=== PATIENT | female | born 1965 | race Asian ===

== ENCOUNTER 2017-10-15 14:02 | Emergency (ER) | payer BC ==
[2017-10-15 14:19] LABS: Bilirubin Negative (Negative); Blood, Urine Small (Negative); Clarity Slightly Cloudy (Clear); Glucose, Urine (Dipstick) Negative (Negative); Leukocyte Trace (Negative); Nitrite Negative (Negative); Protein, Urine (Dipstick) Negative (Neg-Trace); Specific Gravity, Urine 1.015 (1.005-1.030); Urobilinogen 0.2 mg/dL (0.2-1.0)
[2017-10-15 14:23] LABS: Bacteria/HPF 1+ HPF (None Seen); Crystals/HPF 1+ AMORPH PHOS HPF (Negative); Squamous Epithelial 0-3 HPF (0-3)
[2017-10-15 14:24] LABS: Hyaline Casts/LPF 0-3 HYALINE CAST LPF (0-3 Hyaline)
== END 2017-10-15 14:41 | disposition home or self-care (01) ==
LOC: SCSER 14:02
DX: N39.0 Urinary tract infection, site not specified (principal); E78.5 Hyperlipidemia, unspecified; I10 Essential (primary) hypertension; F41.9 Anxiety disorder, unspecified
CPT/HCPCS: 81003; 81015; 87086; 99283

== ENCOUNTER 2018-03-10 08:43 | Outpatient (CLI) | payer BC ==
--- NOTE | 2018-03-10 11:17 | MRI ---
MRI CERVICAL SPINE WITHOUT IV CONTRAST: Date: 03/10/18 HISTORY: Cervical disc degeneration. Patient complains of neck and back pain for years with bilateral hand num bness. FINDINGS: The limited visualized base of brain, as well as cervicomedullary junction demonstrate a normal MRI a ppearance. There are mild end plate degenerative changes at the C3-4, C4-5, and C5-6 levels. There is straightening of the normal lumbar curvature. C2-3 Level: There is no disc bulge or disc herniation. Central spinal canal and neural foramina are widely patent . C3-4 Level: There is mild loss of intervertebral disc height. There is a broad based disc osteophyte complex with very small central disc protrusion. This does result in mild generalized narrowing of the central sp inal canal and there is mild mass effect in the anterior aspect of the spinal cord, but normal signal intensity is present in the spinal cord. The neural foramina are patent. C4-5 Level: There is loss of intervertebral disc height. There is a broad based disc osteophyte complex, includin g small central disc protrusion. There is mild generalized narrowing of the central spinal canal with mild mass effect on the central and left anterolateral aspect of the spinal cord, but normal signal intensity is present in the spinal cord. The neural foramina are patent. C5-6 Level: There is loss of intervertebral disc height. There is a broad based disc osteophyte complex present. This narrows the ventral subarachnoid space. There is mild right and moderate to severe left-sided ne ural foraminal narrowing. C6-7 Level: There is no disc bulge or disc herniation. Central spinal canal and neural foramina are patent. Howev er, there is a 5.0 mm rounded increased T2-weighted signal intensity focus within the lateral aspect of the left C6-7 neural foramen likely related to a dilated nerve root sleeve. C7-T1 Level: There is no disc bulge or disc herniation. Central spinal canal and neural foramina are patent. Paravertebral soft tissues demonstrate a normal MRI appearance. IMPRESSION: Disc degenerative changes within the cervical spine, primarily involving the C3-4, C4-5, and C5-6 lev els. The greatest degree of neural foraminal narrowing is on the left at C5-6 level which approaches moderate to severe in severity. POS: [facility]
--- NOTE | 2018-03-10 11:34 | MRI ---
MRI LUMBAR SPINE: Date: 03-10-18 History: Lumbar radiculopathy. Patient is complaining of neck and back pain for many years. Patient h as back pain that radiates down left leg. Comparison: None available. FINDINGS: There are a few subcentimeter increased T2 weighted signal intensity foci seen in the right hepatic l obe, incompletely imaged, that are overall nonspecific but may represent tiny hepatic cysts. There is also a subcentimeter too small to characterize increased T2 weighted signal intensity lesion at the inferior pole right kidney which is also difficult to characterize but statistically probably represe nts a cyst. This only measures approximately 8 mm and appears to demonstrate slight increased T2 weig hted signal intensity and may represent a Bosniak type II renal cystic lesion. Follow up evaluation i s recommended since this does not have the appearance of a simple appearing cyst on this exam. This w ould be difficult to further characterize due to very small size. Retroperitoneal structures otherwise have a normal MRI appearance. Conus medullaris is normal in appearance and terminates at the T12-L1 level. Normal signal intensity is demonstrated in the bone marrow. L1-2: There is no disc bulge or disc herniation. Central spinal canal and neural foramina are patent. L2-3: There is no disc bulge or disc herniation. Central spinal canal and neural foramina are patent. L3-4: There is no disc bulge or disc herniation. Central spinal canal and neural foramina are patent. L4-5: There is mild loss of intervertebral disc height. There is a broad based central disc protrusio n which results in slight effacement of the thecal sac. The neural foramina are patent. L5-S1: There is small central disc protrusion. This encroaches on the traversing S1 nerve roots but d oes not result in displacement or mass effect or deformity of the nerve roots. Neural foramina are pa tent. There is no effacement of the thecal sac. IMPRESSION: 1. Subcentimeter increased T2 weighted signal intensity lesion in the inferior pole right kidney with suggestion of slight increased signal intensity on post contrast imaging. This may represent a compl ex Bosniak type II renal cystic lesion. CT scan abdomen following renal mass protocol is recommended to ensure there is no enhancement; although, characterization may be difficult given small size. 2. Subcentimeter increased T2 weighted signal intensity lesions within the right hepatic lobe, statis tically likely representing tiny cysts but are difficult to characterize on this exam. 3. Mild disc degenerative changes in the lower lumbar spine. POS: [facility]
== END 2018-03-10 08:44 | disposition home or self-care (01) ==
LOC: TBSIIMAG 08:43
PROVIDERS: ATTEND Neurological Surgery
DX: M47.26 Other spondylosis with radiculopathy, lumbar region (principal); M50.30 Other cervical disc degeneration, unspecified cervical region; M99.81 Other biomechanical lesions of cervical region
CPT/HCPCS: 72141; 72148